=== PATIENT | female | born 1990 | race African-American/Black ===

== ENCOUNTER 2021-07-20 20:10 | Emergency (ER) | payer SELFPAY ==
[~2021-07-20] VITALS: Ht 155 cm; Wt 90.7 kg
--- OUTSIDE RECORDS SUMMARY | 2021-07-20 20:14 | XMS REPORT | Clinical Summary ---
Author Author [facility] Organization [facility] Address Unknown Phone Unavailable Care Team Providers Care Residential Sales Manager Name Role Phone No Pcp, Na PCP Unavailable Source Comments Some departments are not documenting in the electronic medical record. If you d o not see the information that you expected, contact Release of Information in [facility] Health Information Management department at [phone] for further assistan ce in locating additional records.[facility] Allergies No Known Active Allergies Medications End Date Status Medication Sig Dispensed Refills Start Date Active vit Take by 0 calc,iron,folic ( mouth. VITAMIN PO) Active Problems Problem Noted Date Vaginal bleeding 06/02/2018 Immunizations Name Administration Dates Next Due Tdap Vaccine 06/02/2018 () Social History Date Tobacco Use Types Packs/Day Years Used Never Smoker Smokeless Tobacco: Never Used Tobacco Cessation: Counseling Given: No Comments Alcohol Use Standard Drinks/Week No 0 (1 standard drink = 0.6 o z pure alcohol) Sex Assigned at Date Recorded Not on file Obstetrics History Term Pre Abrt (TAB) (SAB) (Ect) Mult Lvng Comments Grav Para 1 0 2 2 Date GA Total Labor Labor/2nd/3rd Weight Sex Delivery Anes PTL [place] A1 A5 Name Clin Outcome 2010 Vag-Spont Term 06/02/2018 20w2d 13.1 oz M Vag-Spont Intravenous Y Neon[place] l Demise 2 1 ELSY WOLFF Kelsi, MD Para Complications: None, premature r upture of membranes (PPROM) delivered, current hospitalization Delivery Location: [facility]) Last Filed Vital Signs Reading Time Taken Comments Vital Sign 114/75 06/02/2018 12:00 PM CDT Blood Pressure 72 06/02/2018 12:00 PM CDT Pulse 36.6 C (97.9 F) 06/02/2018 11:00 AM CDT Temperature - - Respiratory Rate 99% 06/02/2018 12:00 PM CDT Oxygen Saturation - - Inhaled Oxygen Concentration 84.8 kg (187 lb) 06/01/2018 11:32 PM CDT Weight 154.9 cm (5' 1") 06/01/2018 11:32 PM CDT Height 35.33 06/01/2018 11:32 PM CDT Body Mass Index Plan of Treatment Health Maintenance Due Date Last Done Comments HIV SCREENING 2005 DTAP/TDAP VACCINES (1 - 2008 Tdap) HEPATITIS C SCREENING 2008 PHYSICAL (COMPREHENSIVE) 2008 EXAM CERVICAL CANCER SCREENING 2011 INFLUENZA VACCINE 05/06/2021 Results Not on filefrom Last 3 Months Advance Directives Patient Set Up Worker Explanation Type Date Recorded Advance 04/27/2018 8:08 PM Directive/DPOA Date Inactivated Comments Code Status Date Activated 06/02/2018 4:45 PM Full Code 06/02/2018 12:39 AM Provider has discussed Code Status No, discussion no t w/Patient or Family? necessary based on Dx
[2021-07-20] MEDS ORDERED: ONDANSETRON 4 MG/2 ML (SDV) Z0FRAN IVP ONE (20:45)
[2021-07-20] MEDS ORDERED: MECL-149 PO (21:04)
--- NOTE | 2021-07-20 21:04 | ED General ---
General Chief Complaint: Dizziness/Syncope Stated Complaint: DIZZINESS Nursing Triage Note: PT AMB TO RM 7 W REPORTS OF DIZZINESS AND NAUSEA (NO VOMITING) SX 1700 THIS EVENING. PT REPORTS SHE HAS NEVER EXPERIENCED ANYTHING LIKE THIS AND "IT FEELS LIKE THE WORLD IS TURNING." A&OX4. Source of Information: Patient Exam Limitations: No Limitations History of Present Illness Date Seen by Provider: Jul 20, 2021 Time Seen by Provider: 21:00 Initial Comments to ER with sudden onset of dizziness this evening at 5 PM while cooking dinner. She had some nausea with this but never has vomited. No headache no other symptoms and has never had this before. She takes no medications and is otherwise healthy. She states that it was worse if she laid down and if she sat up and perfectly still it was better. Timing/Duration: 1-2 Days Severity: Moderate Associated Systoms: Denies Symptoms Allergies and Home Medications Allergies Coded Allergies: No Known Drug Allergies (Unverified , 07/20/21) Patient Home Medication List Home Medication List Reviewed: Yes Meclizine HCl (Meclizine HCl) 25 Mg Tablet, 25 MG PO TID PRN for DIZZINESS Prescribed by: KENDALL PATEL on 07/20/212103 Review of Systems Review of Systems Constitutional: see HPI, dizziness EENTM: see HPI Respiratory: no symptoms reported Cardiovascular: no symptoms reported Genitourinary: no symptoms reported Musculoskeletal: no symptoms reported Skin: no symptoms reported Psychiatric/Neurological: No Symptoms Reported Hematologic/Lymphatic: No Symptoms Reported Past Nbrfcsi-Livrun-Iozjoy Hx Patient Social History Tobacco Use?: No Use of E-Cig and/or Vaping dev: No Substance use?: No Alcohol Use?: No Immunizations Up To Date First/Initial COVID19 Vaccinat: NONE Second COVID19 Vaccination Jose Alfredo: NONE COVID19 Vaccine Publication Distributor: NONE Physical Exam Vital Signs Vital Signs - First Documented 07/20/21 20:31 Temp 36.6 Pulse 79 Resp 20 B/P (MAP) 136/94 (108) Pulse Ox 98 O2 Delivery Room Air Capillary Refill : Less Than 3 Seconds Height, Weight, BMI Height: '" Weight: lbs. oz. kg; 37.00 BMI Method: General Appearance: No Apparent Distress, WD/WN Eyes: Bilateral Eye Normal Inspection, Bilateral Eye PERRL, Bilateral Eye EOMI HEENT: PERRL/EOMI, TMs Normal, Other (No nystagmus and her tympanic membranes are normal. Speech is normal alert and oriented very pleasant states that her dizziness is gone at this time.) Neck: Full Range of Motion, Normal Inspection Respiratory: No Accessory Muscle Use, No Respiratory Distress Gastrointestinal: Non Tender, Soft Extremity: Normal Capillary Refill, Normal Inspection Neurologic/Psychiatric: Alert, Oriented x3 Skin: Normal Color, Warm/Dry Progress/Results/Core Measures Suspected Sepsis SIRS Temperature: Pulse: 79 Respiratory Rate: 20 Laboratory Tests 07/20/21 20:40: White Blood Count 8.2 Blood Pressure 136 /94 Mean: 108 Laboratory Tests 07/20/21 20:40: Creatinine 0.88, Platelet Count 309, Total Bilirubin 0.7 Results/Orders Lab Results Laboratory Tests Test 07/20/21 20:40 Range/Units White Blood Count 8.2 4.3-11.0 10^3/uL Red Blood Count 4.61 3.80-5.11 10^6/uL Hemoglobin 13.1 11.5-16.0 g/dL Hematocrit 38 35-52 % Mean Corpuscular Volume 83 80-99 fL Mean Corpuscular Hemoglobin 28 25-34 pg Mean Corpuscular Hemoglobin Concent 34 32-36 g/dL Red Cell Distribution Width 11.8 10.0-14.5 % Platelet Count 309 130-400 10^3/uL Mean Platelet Volume 11.0 9.0-12.2 fL Immature Granulocyte % (Auto) 0 % Neutrophils (%) (Auto) 46 42-75 % Lymphocytes (%) (Auto) 46 H 12-44 % Monocytes (%) (Auto) 6 0-12 % Eosinophils (%) (Auto) 1 0-10 % Basophils (%) (Auto) 1 0-10 % Neutrophils # (Auto) 3.7 1.8-7.8 10^3/uL Lymphocytes # (Auto) 3.8 1.0-4.0 10^3/uL Monocytes # (Auto) 0.5 0.0-1.0 10^3/uL Eosinophils # (Auto) 0.1 0.0-0.3 10^3/uL Basophils # (Auto) 0.1 0.0-0.1 10^3/uL Immature Granulocyte # (Auto) 0.0 0.0-0.1 10^3/uL Sodium Level 138 135-145 MMOL/L Potassium Level 3.8 3.6-5.0 MMOL/L Chloride Level 102 98-107 MMOL/L Carbon Dioxide Level 24 21-32 MMOL/L Anion Gap 12 5-14 MMOL/L Blood Urea Nitrogen 10 7-18 MG/DL Creatinine 0.88 0.60-1.30 MG/DL Estimat Glomerular Filtration Rate 91 BUN/Creatinine Ratio 11 Glucose Level 94 70-105 MG/DL Calcium Level 9.6 8.5-10.1 MG/DL Corrected Calcium 9.4 8.5-10.1 MG/DL Total Bilirubin 0.7 0.1-1.0 MG/DL Aspartate Amino Transf (AST/SGOT) 15 5-34 U/L Alanine Aminotransferase (ALT/SGPT) 14 0-55 U/L Alkaline Phosphatase 57 40-136 U/L Total Protein 7.4 6.4-8.2 GM/DL Albumin 4.3 3.2-4.5 GM/DL Serum Test, Qualitative NEGATIVE NEGATIVE My Orders Orders - KENDALL PATEL APRN Ondansetron Injection (Zofran Injectio (07/20/21 20:45) Ed Iv/Invasive Line Start (07/20/21 21:04) Cbc With Automated Diff (07/20/21 21:04) Comprehensive Metabolic Panel (07/20/21 21:04) Hcg,Qualitative Serum (07/20/21 21:04) Medications Given in ED Current Medications Medications Dose Ordered Sig/Flip Route Start Time Stop Time Status Last Admin Dose Admin Ondansetron HCl 4 mg ONCE ONCE IVP 07/20/21 20:45 07/20/21 20:46 DC 07/20/21 20:51 4 MG Vital Signs/I&O 07/20/21 20:31 Temp 36.6 Pulse 79 Resp 20 B/P (MAP) 136/94 (108) Pulse Ox 98 O2 Delivery Room Air Capillary Refill : Less Than 3 Seconds Blood Pressure Mean: 108 Departure Communication (Admissions) Her symptoms are consistent with a peripheral vertigo. Impression Primary Impression: BPPV (benign paroxysmal positional vertigo) Disposition: 01 HOME, SELF-CARE Condition: Improved Departure-Patient Inst. Decision time for Depature: 21:02 Referrals: NO,LOCAL PHYSICIAN (PCP/Family) Primary Care Physician Patient Instructions: Vertigo (a Type of Dizziness) (DC) Add. Discharge Instructions: 1. If this is a recurrent problem you can do some maneuvers called the Brett maneuver. Easiest way to do this is to look this up on YouTube and follow their instruction. This can be helpful in lodging the stone that is causing this. Scripts Meclizine HCl (Meclizine HCl) 25 Mg Tablet 25 MG PO TID PRN for DIZZINESS, #14 TAB Prov: KENDALL PATEL APRN 07/20/21 KENDALL PATEL APRN Jul 20, 2021 21:04
[2021-07-20 21:13] LABS: BASOPHILS # (AUTO) 0.1 10^3/uL (0.0-0.1); BASOPHILS % (AUTO) 1 % (0-10); EOSINOPHILS # (AUTO) 0.1 10^3/uL (0.0-0.3); EOSINOPHILS % (AUTO) 1 % (0-10); HEMATOCRIT 38 % (35-52); HEMOGLOBIN 13.1 g/dL (11.5-16.0); LYMPHOCYTES # (AUTO) 3.8 10^3/uL (1.0-4.0); LYMPHOCYTES % (AUTO) 46 % (12-44); MEAN CORPUSCULAR HEMOGLOBIN 28 pg (25-34); MEAN CORPUSCULAR HGB CONC 34 g/dL (32-36); MEAN CORPUSCULAR VOLUME 83 fL (80-99); MONOCYTES # (AUTO) 0.5 10^3/uL (0.0-1.0); MONOCYTES % (AUTO) 6 % (0-12); NEUTROPHILS # (AUTO) 3.7 10^3/uL (1.8-7.8); NEUTROPHILS % (AUTO) 46 % (42-75); PLATELET COUNT 309 10^3/uL (130-400); WHITE BLOOD COUNT 8.2 10^3/uL (4.3-11.0)
[2021-07-20 21:16] LABS: ALBUMIN 4.3 GM/DL (3.2-4.5)
[2021-07-20 21:17] LABS: POTASSIUM 3.8 MMOL/L (3.6-5.0)
[2021-07-20 21:18] LABS: CALCIUM 9.6 MG/DL (8.5-10.1)
[2021-07-20 21:19] LABS: TOTAL PROTEIN 7.4 GM/DL (6.4-8.2)
[2021-07-20 21:21] LABS: BILIRUBIN,TOTAL 0.7 MG/DL (0.1-1.0)
[2021-07-20 21:23] LABS: CREATININE SERUM 0.88 MG/DL (0.60-1.30)
[2021-07-20] MEDS ORDERED: LORazepam INJ 2 MG/ML (ATIVAN) VIAL IVP PRN (21:45)
[2021-07-20 22:01] VITALS: BP 133/94
== END 2021-07-20 22:02 | disposition home or self-care (01) ==
LOC: ER 20:11
DX: H81.10 Benign paroxysmal vertigo, unspecified ear (principal)
CPT/HCPCS: 36415; 80053; 84703; 85025

== ENCOUNTER 2021-11-29 17:32 | Emergency (ER) | payer SELFPAY ==
[~2021-11-29] VITALS: Ht 154 cm; Wt 90.9 kg
[~2021-11-29 17:32] MED LIST: MECL-149 PO
--- NOTE | 2021-11-29 17:59 | ED General ---
General Chief Complaint: General Problems/Pain Stated Complaint: DIZZINESS, HEADACHE Nursing Triage Note: AMB TO ED REPORTS HAS BEEN DIZZY WITH HEADACHE FOR 3 DAYS . HAS BEEN TRYING TO GET PREG. THOUGHT SHE MIGHT BE BUT TOOK HOME PERG TEST THAT WAS NEG. HAS NOT TAKEN MEDS FOR HEADACHE. Source of Information: Patient Exam Limitations: No Limitations History of Present Illness Date Seen by Provider: Nov 29, 2021 Time Seen by Provider: 17:57 Initial Comments To ER with a 3-day history of frontal headache associated with dizziness worse when she closes her eyes. No head injury no fevers no chills. She has had general fatigue today. She should have started her period today but did not. Timing/Duration: 2-3 Days Severity: Moderate Associated Systoms: Headaches; No Nausea/Vomiting, No Weakness Allergies and Home Medications Allergies Coded Allergies: No Known Drug Allergies (Unverified , 07/20/21) Patient Home Medication List Home Medication List Reviewed: Yes Meclizine HCl (Meclizine HCl) 25 Mg Tablet, 25 MG PO TID PRN for DIZZINESS Prescribed by: KENDALL PATEL on 07/20/212103 Review of Systems Review of Systems Constitutional: see HPI, dizziness EENTM: see HPI Respiratory: no symptoms reported Cardiovascular: no symptoms reported Genitourinary: no symptoms reported Musculoskeletal: no symptoms reported Skin: no symptoms reported Psychiatric/Neurological: See HPI, Headache Hematologic/Lymphatic: No Symptoms Reported Past Dadsxkz-Crwofl-Kmcvkf Hx Patient Social History Tobacco Use?: No Substance use?: No Pt feels they are or have been: No Immunizations Up To Date First/Initial COVID19 Vaccinat: NONE Second COVID19 Vaccination Jose Alfredo: NONE Physical Exam Vital Signs Vital Signs - First Documented 11/29/21 17:37 Temp 36.1 Pulse 87 Resp 18 B/P (MAP) 140/90 (107) Pulse Ox 100 Capillary Refill : Less Than 3 Seconds Height, Weight, BMI Height: '" Weight: lbs. oz. kg; 38.00 BMI Method: General Appearance: No Apparent Distress, WD/WN, Obese, Other (Alert and oriented no distress very pleasant. Blood pressure 141/90 heart rate 83 oxygen 98% on room air) HEENT: PERRL/EOMI, TMs Normal, Normal ENT Inspection Neck: Full Range of Motion, Normal Inspection Respiratory: Normal Breath Sounds, No Accessory Muscle Use, No Respiratory Dist ress Cardiovascular: Regular Rate, Rhythm, Normal Peripheral Pulses Gastrointestinal: Normal Bowel Sounds, Non Tender, Soft Extremity: Normal Capillary Refill, Normal Inspection Neurologic/Psychiatric: Alert, Oriented x3 Skin: Normal Color, Warm/Dry Progress/Results/Core Measures Suspected Sepsis SIRS Temperature: Pulse: 87 Respiratory Rate: 18 Blood Pressure 140 /90 Mean: 107 Results/Orders My Orders Orders - KENDALL PATEL APRN Cbc With Automated Diff (11/29/21 17:46) Basic Metabolic Panel (11/29/21 17:46) Hcg,Qualitative Serum (11/29/21 17:46) Ua Culture If Indicated (11/29/21 17:46) Ibuprofen Tablet (Motrin Tablet) (11/29/21 18:00) Meclizine Tablet (Antivert Tablet) (11/29/21 18:00) Vital Signs/I&O 11/29/21 17:37 Temp 36.1 Pulse 87 Resp 18 B/P (MAP) 140/90 (107) Pulse Ox 100 Capillary Refill : Less Than 3 Seconds Blood Pressure Mean: 107 Departure Impression Primary Impression: Dizziness Additional Impression: Headache Disposition: 01 HOME, SELF-CARE Condition: Stable Departure-Patient Inst. Decision time for Depature: 17:59 Referrals: NO,LOCAL PHYSICIAN (PCP/Family) Primary Care Physician Patient Instructions: Vertigo ED KENDALL PATEL APRN Nov 29, 2021 17:59
[2021-11-29] MEDS ORDERED: MECLIZINE 25 MG (ANTIVERT) TAB PO ONE (18:00)
[2021-11-29] MEDS ORDERED: IBUPROFEN 800 MG (MOTRIN) TAB PO ONE (18:00)
[2021-11-29 18:42] LABS: BASOPHILS # (AUTO) 0.1 10^3/uL (0.0-0.1); BASOPHILS % (AUTO) 1 % (0-10); EOSINOPHILS # (AUTO) 0.1 10^3/uL (0.0-0.3); EOSINOPHILS % (AUTO) 2 % (0-10); HEMATOCRIT 39 % (35-52); HEMOGLOBIN 13.1 g/dL (11.5-16.0); LYMPHOCYTES # (AUTO) 2.7 10^3/uL (1.0-4.0); LYMPHOCYTES % (AUTO) 37 % (12-44); MEAN CORPUSCULAR HEMOGLOBIN 28 pg (25-34); MEAN CORPUSCULAR HGB CONC 34 g/dL (32-36); MEAN CORPUSCULAR VOLUME 82 fL (80-99); MEAN PLATELET VOLUME 10.9 fL (9.0-12.2); MONOCYTES # (AUTO) 0.5 10^3/uL (0.0-1.0); MONOCYTES % (AUTO) 7 % (0-12); NEUTROPHILS # (AUTO) 3.9 10^3/uL (1.8-7.8); NEUTROPHILS % (AUTO) 54 % (42-75); PLATELET COUNT 293 10^3/uL (130-400); WHITE BLOOD COUNT 7.3 10^3/uL (4.3-11.0)
[2021-11-29 18:51] LABS: BILIRUBIN,URINE NEGATIVE (NEGATIVE); CLARITY,URINE CLEAR; COLOR,URINE YELLOW; GLUCOSE, URINE (UA) NEGATIVE (NEGATIVE); KETONES,URINE NEGATIVE (NEGATIVE); LEUKOCYTE ESTERASE ,URINE NEGATIVE (NEGATIVE); NITRITE,URINE NEGATIVE (NEGATIVE); PROTEIN,URINE NEGATIVE (NEGATIVE)
[2021-11-29 18:51] LABS: POTASSIUM 3.8 MMOL/L (3.6-5.0)
[2021-11-29 18:52] LABS: CALCIUM 9.2 MG/DL (8.5-10.1)
[2021-11-29 18:56] LABS: CREATININE SERUM 0.74 MG/DL (0.60-1.30)
[2021-11-29 19:18] LABS: BACTERIA,URINE TRACE /HPF; SQUAMOUS EPITHELIAL CELL,UR 0-2 /HPF; WBC,URINE RARE /HPF
[2021-11-29 19:19] LABS: AMORPHOUS SEDIMENT,UR FEW AMOR PHOSPHATE /LPF
[2021-11-29 19:24] VITALS: BP 125/83
== END 2021-11-29 19:34 | disposition home or self-care (01) ==
LOC: EDUNIT# 17:32 → ER 17:35
DX: R42 Dizziness and giddiness (principal); R51.9 Headache, unspecified; E66.9 Obesity, unspecified; Z68.38 Body mass index [BMI] 38.0-38.9, adult
CPT/HCPCS: 36415; 80048; 81000; 84703; 85025; 99283

== ENCOUNTER 2021-12-15 19:34 | Emergency (ER) | payer SELFPAY ==
[~2021-12-15] VITALS: Ht 154 cm; Wt 91.0 kg
[2021-12-15 20:21] LABS: CLARITY,URINE TURBID; COLOR,URINE RED; GLUCOSE, URINE (UA) TRACE (NEGATIVE); KETONES,URINE TRACE (NEGATIVE); LEUKOCYTE ESTERASE ,URINE NEGATIVE (NEGATIVE); NITRITE,URINE NEGATIVE (NEGATIVE); PROTEIN,URINE 1+ (NEGATIVE)
--- NOTE | 2021-12-15 20:25 | ED GU-Female ---
General Chief Complaint: - Reproductive Stated Complaint: 3 WEEKS; BLEEDING; HEADACHE Nursing Triage Note: reports 4 weeks , states spotting started 12/14/21 with increased bleeding today. requesting blood draw for status. Source: patient Exam Limitations: no limitations History of Present Illness Date Seen by Provider: Dec 15, 2021 Time Seen by Provider: 20:03 Initial Comments Here with report of spotting yesterday morning and again today. Initially started after sexual activity. She believes that she is . She did have a negative test here on the and again today but did have positive blood test reportedly the [facility] earlier this week. Denies pain with sexual activity, dysuria or problems with bowel movement. Denies vaginal discharge otherwise. She has had 2 previous pregnancies. She does report increased thirst and mild headache occasionally. Timing/Duration: yesterday, changing over time Severity/Quality: mild, other (Spotting) Location: vaginal Radiation: none Activities at Onset: sexual activity Prior Genitourinary Problems: none Sexual [place] History: less than 2 months ago, single partner Modifying Factors: Improves With Resting Associated Symptoms: No abdominal pain, No dysuria, No fever/chills, No loss of bladder control, No lower back pain, No nausea/vomiting, No polyuria, No urinary frequency Allergies and Home Medications Allergies Coded Allergies: No Known Drug Allergies (Unverified , 07/20/21) Patient Home Medication List Home Medication List Reviewed: Yes Meclizine HCl (Meclizine HCl) 25 Mg Tablet, 25 MG PO TID PRN for DIZZINESS Prescribed by: KENDALL PATEL on 07/20/212103 Review of Systems Review of Systems Constitutional: see HPI; No chills, No fever Respiratory: No cough, No short of breath Cardiovascular: No chest pain, No palpitations Gastrointestinal: No nausea, No vomiting Genitourinary: denies frequency; other (Brooker vaginal spotting) Psychiatric/Neurological: Headache (Mild frontal and intermittent); Denies Weakness Endocrine: Increased Thrist; Denies Increased Urine Past Oblygdw-Tdimxq-Xqsvti Hx Patient Social History Tobacco Use?: No Substance use?: No Alcohol Use?: No Pt feels they are or have been: No Immunizations Up To Date First/Initial COVID19 Vaccinat: NONE Second COVID19 Vaccination Jose Alfredo: NONE Third COVID19 Vaccination Date: NONE Past Medical History Surgery/Hospitalization HX: denies Cardiac: No Last Menstrual Period: Nov 17, 2021 Endocrine: No Family Medical History Reviewed Nursing Family Hx Physical Exam Vital Signs Vital Signs - First Documented 12/15/21 19:40 Temp 36.0 Pulse 81 Resp 18 B/P (MAP) 105/73 (84) Pulse Ox 100 O2 Delivery Room Air Capillary Refill : Less Than 3 Seconds Height, Weight, BMI Height: '" Weight: lbs. oz. kg; 38.00 BMI Method: General Appearance: WD/WN, no apparent distress Cardiovascular: regular rate, rhythm, no murmur Respiratory: lungs clear, normal breath sounds Neurologic/Psychiatric: no motor/sensory deficits, alert, normal mood/affect, oriented x 3 Skin: normal color, warm/dry Progress/Results/Core Measures Suspected Sepsis SIRS Temperature: Pulse: 81 Respiratory Rate: 18 Laboratory Tests 12/15/21 20:45: White Blood Count 9.1 Blood Pressure 105 /73 Mean: 84 Laboratory Tests 12/15/21 20:45: Creatinine 0.74, Platelet Count 286 Results/Orders Lab Results Laboratory Tests Test 12/15/21 19:49 12/15/21 20:45 Range/Units Urine Color RED H Urine Clarity TURBID Urine pH 7.0 5-9 Urine Specific [place] 1.020 1.016-1.022 Urine Protein 1+ H NEGATIVE Urine Glucose (UA) TRACE H NEGATIVE Urine Ketones TRACE H NEGATIVE Urine Nitrite NEGATIVE NEGATIVE Urine Bilirubin 1+ H NEGATIVE Urine Urobilinogen 1.0 < = 1.0 MG/DL Urine Leukocyte Esterase NEGATIVE NEGATIVE Urine RBC (Auto) 3+ H NEGATIVE Urine RBC 25-50 H /HPF Urine WBC 10-25 H /HPF Urine Squamous Epithelial Cells 0-2 /HPF Urine Renal Epithelial Cells NONE /HPF Urine Crystals NONE /LPF Urine Bacteria NEGATIVE /HPF Urine Casts NONE /LPF Urine Mucus NEGATIVE /LPF Urine Culture Indicated NO White Blood Count 9.1 4.3-11.0 10^3/uL Red Blood Count 4.77 3.80-5.11 10^6/uL Hemoglobin 13.3 11.5-16.0 g/dL Hematocrit 40 35-52 % Mean Corpuscular Volume 84 80-99 fL Mean Corpuscular Hemoglobin 28 25-34 pg Mean Corpuscular Hemoglobin Concent 33 32-36 g/dL Red Cell Distribution Width 12.4 10.0-14.5 % Platelet Count 286 130-400 10^3/uL Mean Platelet Volume 11.4 9.0-12.2 fL Immature Granulocyte % (Auto) 0 % Neutrophils (%) (Auto) 52 42-75 % Lymphocytes (%) (Auto) 39 12-44 % Monocytes (%) (Auto) 6 0-12 % Eosinophils (%) (Auto) 2 0-10 % Basophils (%) (Auto) 1 0-10 % Neutrophils # (Auto) 4.7 1.8-7.8 10^3/uL Lymphocytes # (Auto) 3.6 1.0-4.0 10^3/uL Monocytes # (Auto) 0.6 0.0-1.0 10^3/uL Eosinophils # (Auto) 0.2 0.0-0.3 10^3/uL Basophils # (Auto) 0.1 0.0-0.1 10^3/uL Immature Granulocyte # (Auto) 0.0 0.0-0.1 10^3/uL Sodium Level 138 135-145 MMOL/L Potassium Level 3.6 3.6-5.0 MMOL/L Chloride Level 109 H 98-107 MMOL/L Carbon Dioxide Level 17 L 21-32 MMOL/L Anion Gap 12 5-14 MMOL/L Blood Urea Nitrogen 10 7-18 MG/DL Creatinine 0.74 0.60-1.30 MG/DL Estimat Glomerular Filtration Rate 111 BUN/Creatinine Ratio 14 Glucose Level 107 H 70-105 MG/DL Calcium Level 9.1 8.5-10.1 MG/DL Human Chorionic Gonadotropin, Quant < 5 <5 MIU/ML My Orders Orders - ED BAHT MD Basic Metabolic Panel (12/15/21 20:13) Cbc With Automated Diff (12/15/21 20:13) Ua Culture If Indicated (12/15/21 20:13) Wet Prep (12/15/21 20:13) Hcg,Quantitative (12/15/21 20:13) Abo Rh Type (12/15/21 20:13) Vital Signs/I&O 12/15/21 19:40 Temp 36.0 Pulse 81 Resp 18 B/P (MAP) 105/73 (84) Pulse Ox 100 O2 Delivery Room Air Capillary Refill : Less Than 3 Seconds Blood Pressure Mean: 84 Progress Note : Progress Note Seen and evaluated. We will check basic labs including CBC, BMP hCG quantitative level and get self-administered wet prep swab. UA ordered. UCG is negative but patient states that she had positive blood test at [facility] so we will go ahead and check quantitative level as well as ABO Rh in case she is due to report of bleeding. All of this was discussed with the patient and her agrees. CBC and BMP ordered due to increased thirst and bleeding. Monitor patient. 2123: No significant abnormalities noted on labs and hCG is negative so has been ruled out. Wet prep did not show any clue cells. UA was contaminated and bloody but she is likely on her menstrual. I did discuss all of this with the patient. Discharged home with return precautions. Patient verbalized understanding instructions and agreement with plan. I did encourage her to follow-up with women's health doctor either at [facility] or locally in the community which she states that she will. Departure Impression Primary Impression: Irregular menstrual bleeding Disposition: HOME, SELF-CARE Condition: Stable Departure-Patient Inst. Decision time for Depature: 21:25 Referrals: NO,LOCAL PHYSICIAN (PCP/Family) Primary Care Physician Patient Instructions: Absent or Irregular Periods, Bleeding Between Periods Add. Discharge Instructions: All discharge instructions reviewed with patient and/or family. Voiced understanding. Follow-up with [facility] for women's health exam/physician and or with one of the local real estate sales manager of your choosing. Your test is negative today including blood and urine test. Return for worse pain, fever, vomiting, weakness, shortness of breath or other concerns as needed. ED BHAT MD Dec 15, 2021 20:25
[2021-12-15 20:27] LABS: BACTERIA,URINE NEGATIVE /HPF; BILIRUBIN,URINE 1+ (NEGATIVE); RBC,URINE 25-50 /HPF; SQUAMOUS EPITHELIAL CELL,UR 0-2 /HPF
[2021-12-15 20:51] LABS: BASOPHILS # (AUTO) 0.1 10^3/uL (0.0-0.1); BASOPHILS % (AUTO) 1 % (0-10); EOSINOPHILS # (AUTO) 0.2 10^3/uL (0.0-0.3); EOSINOPHILS % (AUTO) 2 % (0-10); HEMATOCRIT 40 % (35-52); HEMOGLOBIN 13.3 g/dL (11.5-16.0); LYMPHOCYTES # (AUTO) 3.6 10^3/uL (1.0-4.0); LYMPHOCYTES % (AUTO) 39 % (12-44); MEAN CORPUSCULAR HEMOGLOBIN 28 pg (25-34); MEAN CORPUSCULAR HGB CONC 33 g/dL (32-36); MEAN CORPUSCULAR VOLUME 84 fL (80-99); MEAN PLATELET VOLUME 11.4 fL (9.0-12.2); MONOCYTES # (AUTO) 0.6 10^3/uL (0.0-1.0); MONOCYTES % (AUTO) 6 % (0-12); NEUTROPHILS # (AUTO) 4.7 10^3/uL (1.8-7.8); NEUTROPHILS % (AUTO) 52 % (42-75); PLATELET COUNT 286 10^3/uL (130-400); WHITE BLOOD COUNT 9.1 10^3/uL (4.3-11.0)
[2021-12-15 20:59] LABS: CHLORIDE 109 MMOL/L (98-107); POTASSIUM 3.6 MMOL/L (3.6-5.0); SODIUM 138 MMOL/L (135-145)
[2021-12-15 21:01] LABS: CALCIUM 9.1 MG/DL (8.5-10.1); GLUCOSE 107 MG/DL (70-105)
[2021-12-15 21:03] LABS: CARBON DIOXIDE 17 MMOL/L (21-32)
[2021-12-15 21:05] LABS: CREATININE SERUM 0.74 MG/DL (0.60-1.30); GFR ESTIMATED 111
[2021-12-15 21:06] LABS: BUN/CREATININE RATIO 14
[2021-12-15 21:30] VITALS: BP 105/73
== END 2021-12-15 21:32 | disposition home or self-care (01) ==
LOC: EDUNIT# 19:34 → ER 19:36
DX: N92.1 Excessive and frequent menstruation with irregular cycle (principal)
CPT/HCPCS: 36415; 80048; 81000; 84702; 84703; 85025; 86900; 86901; 87088; 87210; 99282

== ENCOUNTER 2023-02-24 18:43 | Outpatient (CLI) | payer SELFPAY ==
[~2023-02-24] VITALS: Ht 167.7 cm; Wt 74.3 kg
[2023-02-24 19:31] VITALS: BP 147/80
[2023-02-24 19:35] LABS: BILIRUBIN,URINE NEGATIVE (NEGATIVE); CLARITY,URINE CLEAR; COLOR,URINE YELLOW; GLUCOSE, URINE (UA) NEGATIVE (NEGATIVE); KETONES,URINE 1+ (NEGATIVE); LEUKOCYTE ESTERASE ,URINE NEGATIVE (NEGATIVE); NITRITE,URINE NEGATIVE (NEGATIVE); PROTEIN,URINE TRACE (NEGATIVE)
[2023-02-24 19:52] LABS: AMORPHOUS SEDIMENT,UR FEW AMOR URATES /LPF; BACTERIA,URINE FEW /HPF; WBC,URINE RARE /HPF
[2023-02-24] MEDS ORDERED: LACTATED RINGERS 1,000 ML IV ONE (20:06)
[2023-02-24] MEDS ORDERED: LACTATED RINGERS 1,000 ML IV SCH (20:15)
[2023-02-24 21:40] VITALS: BP 123/70
--- NOTE | 2023-02-25 08:14 | Physician Query-Final Dx ---
HEATH,02/25/23 0814: Clinic Account Progress/Dx Physician Query: Please give diagnosis Please include # weeks gestation Date of Service February 24, 2023 at 18:43 YURIDIA VILLEDA MD 02/25/23 1552: Clinic Account Progress/Dx DIAGNOSIS: Diagnosis Abdominal cramping in Third trimester 29 weeks gestation Closed cervix, uterine irritability improved with IVF HEATH,OctFebruary 25, 2023 08:14 YURIDIA VILLEDA MD February 25, 2023 15:52
== END 2023-02-24 21:40 ==
LOC: WSo 18:43 → LDRP 18:43 → WSo 21:40
PROVIDERS: ATTEND Family Medicine
DX: O62.9 Abnormality of forces of labor, unspecified (principal); Z3A.29 29 weeks gestation of pregnancy
CPT/HCPCS: 81000; 96360; 99213

== ENCOUNTER 2023-03-16 09:03 | Outpatient (CLI) | payer SELFPAY ==
[2023-03-16 09:34] VITALS: BP 132/82
[2023-03-16 09:46] LABS: BILIRUBIN,URINE NEGATIVE (NEGATIVE); CLARITY,URINE CLEAR; COLOR,URINE YELLOW; GLUCOSE, URINE (UA) NEGATIVE (NEGATIVE); KETONES,URINE NEGATIVE (NEGATIVE); LEUKOCYTE ESTERASE ,URINE TRACE (NEGATIVE); NITRITE,URINE NEGATIVE (NEGATIVE); PROTEIN,URINE NEGATIVE (NEGATIVE)
[2023-03-16 09:50] VITALS: BP 118/58
[2023-03-16 09:54] LABS: BACTERIA,URINE MODERATE /HPF; SQUAMOUS EPITHELIAL CELL,UR 25-50 /HPF; WBC,URINE 0-2 /HPF
[2023-03-16] MEDS ORDERED: LACTATED RINGERS 1,000 ML IV SCH (11:00)
[2023-03-16] MEDS ORDERED: ACETAMINOPHEN 500 MG TAB (TYLENOL) PO ONE (11:00)
[2023-03-16 11:48] LABS: BASOPHILS % (AUTO) 0 % (0-10); EOSINOPHILS # (AUTO) 0.1 10^3/uL (0.0-0.3); EOSINOPHILS % (AUTO) 1 % (0-10); HEMATOCRIT 33 % (35-52); LYMPHOCYTES # (AUTO) 1.8 10^3/uL (1.0-4.0); LYMPHOCYTES % (AUTO) 24 % (12-44); MEAN CORPUSCULAR HEMOGLOBIN 26 pg (25-34); MEAN CORPUSCULAR HGB CONC 33 g/dL (32-36); MEAN CORPUSCULAR VOLUME 77 fL (80-99); MEAN PLATELET VOLUME 11.7 fL (9.0-12.2); MONOCYTES # (AUTO) 0.8 10^3/uL (0.0-1.0); MONOCYTES % (AUTO) 11 % (0-12); NEUTROPHILS # (AUTO) 4.7 10^3/uL (1.8-7.8); NEUTROPHILS % (AUTO) 63 % (42-75); PLATELET COUNT 223 10^3/uL (130-400); WHITE BLOOD COUNT 7.5 10^3/uL (4.3-11.0)
[2023-03-16 11:57] LABS: ALBUMIN 3.7 GM/DL (3.2-4.5)
[2023-03-16 11:58] LABS: POTASSIUM 3.8 MMOL/L (3.6-5.0)
[2023-03-16 11:59] LABS: CALCIUM 9.9 MG/DL (8.5-10.1)
[2023-03-16 12:00] LABS: TOTAL PROTEIN 6.8 GM/DL (6.4-8.2)
[2023-03-16 12:02] LABS: BILIRUBIN,TOTAL 0.9 MG/DL (0.1-1.0)
[2023-03-16 12:04] LABS: CREATININE SERUM 0.62 MG/DL (0.60-1.30)
== END 2023-03-16 12:45 | disposition home or self-care (01) ==
LOC: LDRP 09:03 → WSo 09:03
PROVIDERS: ATTEND Family Medicine
DX: O99.891 Other specified diseases and conditions complicating pregnancy (principal); R10.2 Pelvic and perineal pain; Z3A.00 Weeks of gestation of pregnancy not specified
CPT/HCPCS: 36415; 80053; 81000; 85025; 96360; 99213